=== PATIENT | female | born 1955 | race Caucasian/White ===

== ENCOUNTER 2019-11-21 08:57 | Day surgery (SDC) | payer MEDICARE ==
[2019-11-21] MEDS ORDERED: Dextrose 5%-Lactated Ringers 1,000 ML IV SCH (09:30)
[2019-11-21] MEDS ORDERED: Glycopyrrolate 0.2 MG/ML 2 ML SDV IVPUSH ONE (10:15)
[2019-11-21] MEDS ORDERED: Propofol 200 MG/20 ML SDV ONE (11:06)
[2019-11-21] MEDS ORDERED: Midazolam 1 MG/ML 2 ML SDV ONE (11:06)
[2019-11-21] MEDS ORDERED: fentaNYL 100 MCG/2 ML SDV ONE (11:06)
--- NOTE | 2019-11-25 10:31 | OR ---
DATE OF PROCEDURE: 11/21/2019 SURGEON: Tani Conroy MD PREOPERATIVE DIAGNOSES: 1. Gastroesophageal reflux disease. 2. History of recent treatment for Helicobacter pylori infection. POSTOPERATIVE DIAGNOSES: 1. History of recent treatment for Helicobacter pylori infection. 2. Small hiatal hernia with mild inflammation of esophagogastric junction. 3. 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 OPERATIVE PROCEDURE: Esophagogastroduodenoscopy with: 1. Biopsies of antrum for CLOtest. 2. Biopsies of esophagogastric junction. 3. Biopsies of areas of islands of columnar mucosa isolated above the esophagogastric junction. ANESTHESIA: IV sedation. INDICATIONS FOR PROCEDURE: This is a 64-year-old female presenting with underlying reflux symptoms. As part of the workup previously was tested positive for H. pylori. Prior to that, the patient had been on Pepcid which was not controlling her reflux symptoms. As part of the treatment for the H. pylori, the patient was started on 40 mg of omeprazole b.i.d. in addition to the antibiotics. She has now been off the H. pylori treatment regimen for some time and has been taking omeprazole 40 mg a day for the last 8 days with a good control of her symptoms with that regimen. Plan is to proceed with an upper GI endoscopy for evaluation of the gastroesophageal reflux disease. We will also do biopsies of antrum for CLOtest to see if the H. pylori has been eradicated. She may still need a secondary test of some sort few weeks down the road to confirm that it is completely eradicated as well. Potential risks including bleeding and perforation were discussed, and the patient wishes to proceed. DETAILS OF PROCEDURE: The patient was taken to the operating room and placed in a left lateral decubitus position. IV sedation was administered after which the upper GI endoscope was passed orally through the length of the esophagus, into the stomach with retroflexion view of the fundus, thereafter through the pyloric channel to the junction of the third and fourth portions of the duodenum. Findings included normal hypopharynx, larynx, upper esophageal sphincter, esophageal body. Just above the EG junction roughly 5 cm above the mucosal junction, there were 3 small islands of columnar mucosa, these measured perhaps a mm in size. 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 There was no plaquing or stricturing or other suggestion of neoplastic change within the stomach. There was no significant redness within the gastric mucosa, either within the gastric body or in the antrum, and the pyloric channel and proximal duodenum were unremarkable. At this point, biopsies were obtained from the antrum and sent for CLOtest for H. pylori. Multiple biopsies were obtained from the esophagogastric junction and finally the areas of islands of mucosa were biopsied and sent as a separate specimen. Minimal bleeding from the biopsy sites was seen and the procedure then concluded. At this point, the plan will be to have the patient continue on the omeprazole 40 mg a day and should be following up with Sol Thompson MD roughly in 2 weeks. If the patient's CLOtest is negative, it may still be worthwhile retesting the patient in perhaps 6 weeks to be sure that the H. pylori has been eradicated. Otherwise, follow up with Surgery can be obtained should medical management become at some point unsatisfactory in terms of symptom control or the patient desires to get off long-term medical management with regard to reflux disease. Tani Conroy MD /[id number]
== END 2019-11-21 13:00 | disposition home or self-care (01) ==
LOC: JP.SDS 08:57
PROVIDERS: ATTEND Surgery
DX: K29.50 Unspecified chronic gastritis without bleeding (principal); K44.9 Diaphragmatic hernia without obstruction or gangrene; K31.89 Other diseases of stomach and duodenum; K21.0 Gastro-esophageal reflux disease with esophagitis; Z86.19 Personal history of other infectious and parasitic diseases
CPT/HCPCS: 43239; 87081; J2250; J2704; J3010; J3490; J7121; 88305

== ENCOUNTER 2019-12-19 12:10 | Inpatient (IN) | payer MEDICARE, OTHER ==
--- NOTE | 2019-12-19 13:23 | EDM.PDOC ---
ED HPI GENERAL MEDICAL PROBLEM - General Chief Complaint: Abdominal Pain Stated Complaint: PATIENT STATES GALBLADDER/PASSED OUT Time Seen by Provider: 12/19/19 12:50 Source of Information: Reports: Patient, Family History Limitations: Reports: No Limitations - History of Present Illness INITIAL COMMENTS - FREE TEXT/NARRATIVE: 64-year-old female has been struggling with abdominal pain for the past week. She has a long history of reflux and initially thought it was reflux symptoms but she developed right upper quadrant pain radiating around her back so she went to the clinic to be seen. Labs indicated inflammation with an elevated CRP and an ultrasound of her gallbladder was set up the next day. The result was read today and showed some type of polyp formation in the gallbladder and she had a surgical consultation set up. This morning however she had another intense episode of pain and also developed 2 episodes of bloody diarrhea. No fevers or chills, no vomiting. No abdominal distention. Onset: Gradual Duration: Day(s): (Symptoms for 7 days) Location: Reports: Abdomen (Especially right upper quadrant) Associated Symptoms: Reports: Chest Pain (Some pain in the right lower chest along with the right upper quadrant abdominal pain), Other (Hematochezia). Den ies: Cough - Related Data Allergies Allergy/AdvReac Type Severity Reaction Status Date / Time No Known Allergies Allergy Verified 11/18/19 13:42 Home Meds: Home Meds Omeprazole 40 mg PO ACBREAKFAST 11/18/19 [History] Zolpidem [Ambien] 5 mg PO BEDTIME PRN 11/18/19 [History] Past Medical History HEENT History: Reports: Impaired Vision Cardiovascular History: Reports: Other (See Below) Other Cardiovascular History: history of mitral valve prolapse; diagnosed years ago; no longer takes abx prior to procedures Gastrointestinal History: Reports: GERD, Helicobacter Pylori Genitourinary History: Reports: None [employer] History: Reports: Musculoskeletal History: Reports: Arthritis, Back Pain, Chronic Oncologic (Cancer) History: Reports: Basal Cell Carcinoma, Breast Dermatologic History: Reports: None - Infectious Disease History Infectious Disease History: Reports: Chicken Pox, Helicobacter Pylori, Influenza, Measles - Past Surgical History HEENT Surgical History: Reports: Oral Surgery, Tonsillectomy Cardiovascular Surgical History: Reports: None GI Surgical History: Reports: Colonoscopy Other GI Surgeries/Procedures: Gallbladder polup no stones last week. Female Surgical History: Reports: Breast Biopsy, Mastectomy Musculoskeletal Surgical History: Reports: None Oncologic Surgical History: Reports: Mastectomy Dermatological Surgical History: Reports: Skin Biopsy Social & Family History - Family History Family Medical History: Noncontributory - Tobacco Use Tobacco Use Status *Q: Never Tobacco User - Caffeine Use Caffeine Use: Reports: Tea - Recreational Drug Use Recreational Drug Use: No ED ROS GENERAL - Review of Systems Review Of Systems: See Below Constitutional: Reports: Malaise, Decreased Appetite, Weight Loss (Earlier this summer when she was struggling with Helicobacter pylori). Denies: Fever, Chills HEENT: Reports: No Symptoms Respiratory: Denies: Shortness of Breath, Cough Cardiovascular: Denies: Palpitations GI/Abdominal: Reports: Abdominal Pain, Diarrhea, Hematochezia, Nausea : Reports: No Symptoms Skin: Reports: Pallor, Diaphoresis Neurological: Reports: Other (Near syncope this morning) Psychiatric: Reports: No Symptoms ED EXAM, GENERAL - Physical Exam Exam: See Below Exam Limited By: No Limitations General Appearance: Alert, No Apparent Distress Eye Exam: Bilateral Eye: Normal Inspection Head: Atraumatic Neck: Supple, Non-Tender Respiratory/Chest: Lungs Clear Cardiovascular: Regular Rate, Rhythm. No: Tachycardia GI/Abdominal: Soft, Tender (She does react with tenderness to palpation of her quadrant, no significant guarding) Extremities: Normal Inspection Neurological: Alert, Oriented Psychiatric: Normal Affect, Normal Mood Skin Exam: Warm, Dry, Other (Somewhat pallor appearance, not currently diaphoretic) Course - Vital Signs Last Recorded V/S: Last Vital Signs Temp 97.4 F 12/20/19 07:53 Pulse 75 12/20/19 07:53 Resp 16 12/20/19 07:53 BP 107/57 L 12/20/19 07:53 Pulse Ox 96 12/20/19 07:53 - Orders/Labs/Meds Orders: Active Orders 24 hr Category Date Time Status Patient Status [ADT] Routine ADT 12/19/19 14:45 Active Oxygen Therapy [RC] PRN Care 12/19/19 14:45 Active VTE/DVT Education [RC] Per Unit Routine Care 12/19/19 14:45 Active Vital Signs [RC] Q4H Care 12/19/19 14:45 Active Resuscitation Status Routine Resus Stat 12/19/19 14:44 Ordered Medication Orders Acetaminophen (Tylenol) 650 mg PO Q4H PRN PRN Reason: Pain (Mild 1-3)/fever Hydromorphone HCl (Dilaudid) 0.5 mg IVPUSH Q4H PRN PRN Reason: Pain Ciprofloxacin/Dextrose 400 mg/ (Premix) 200 mls @ 200 mls/hr IV Q12H [facility] Stop: 01/02/20 03:59 Last Admin: 12/20/19 02:26 Dose: 200 mls/hr Documented by: YVES Metronidazole 500 mg/ Premix 100 mls @ 100 mls/hr IV Q8H [facility] Stop: 01/02/20 09:59 Last Admin: 12/20/19 01:15 Dose: 100 mls/hr Documented by: Infusion: 12/19/19 18:33 Dose: 100 mls/hr Documented by: Admin: 12/19/19 17:33 Dose: 100 mls/hr Documented by: ARIELLE Dextrose/Lactated Ringer's (Dextrose 5%-Lactated Ringers) 1,000 mls @ 125 mls/hr IV ASDIRECTED [facility] Ondansetron HCl (Zofran Odt) 4 mg PO Q6H PRN PRN Reason: Nausea able to take PO Pantoprazole Sodium (Protonix Iv) 40 mg IV Q12H [facility] Last Admin: 12/20/19 03:54 Dose: 40 mg Documented by: YVES Zolpidem Tartrate (Ambien) 5 mg PO BEDTIME PRN PRN Reason: Insomnia Last Admin: 12/20/19 01:19 Dose: 5 mg Documented by: PABLO Labs: Laboratory Tests 12/19/19 12/19/19 12/19/19 Range/Units 13:07 13:07 13:07 WBC 16.6 H (4.5-11.0) K/uL RBC 4.24 (3.30-5.50) M/uL Hgb 12.2 (12.0-15.0) g/dL Hct 37.1 (36.0-48.0) % MCV 88 (80-98) fL MCH 29 (27-31) pg MCHC 33 (32-36) % Plt Count 256 (150-400) K/uL Add Manual Diff Yes Neutrophils % (Manual) 87 H (36-66) % Band Neutrophils % 1 L (5-11) % Lymphocytes % (Manual) 6 L (24-44) % Monocytes % (Manual) 5 (2-6) % Sodium 141 (140-148) mmol/L Potassium 3.3 L (3.6-5.2) mmol/L Chloride 103 (100-108) mmol/L Carbon Dioxide 25 (21-32) mmol/L Anion Gap 16.3 H (5.0-14.0) mmol/L BUN 12 (7-18) mg/dL Creatinine 0.9 (0.6-1.0) mg/dL Est Cr Clr Drug Dosing 62.47 mL/min Estimated GFR (MDRD) > 60 (>60) Glucose 114 H (74-106) mg/dL Lactic Acid 1.4 (0.4-2.0) mmol/L Calcium 8.3 L (8.5-10.1) mg/dL Total Bilirubin 0.4 (0.2-1.0) mg/dL AST 13 L (15-37) U/L ALT 24 (12-78) U/L Alkaline Phosphatase 69 (46-116) U/L Total Protein 6.1 L (6.4-8.2) g/dL Albumin 3.0 L (3.4-5.0) g/dL Globulin 3.1 (2.3-3.5) g/dL Albumin/Globulin Ratio 1.0 L (1.2-2.2) Lipase 631 H (73-393) U/L Meds: Medications Generic Name Dose Route Start Last Admin Trade Name Freq PRN Reason Stop Dose Admin Acetaminophen 650 mg 12/19/19 14:47 Tylenol PO Q4H PRN Pain (Mild 1-3)/fever Hydromorphone HCl 0.5 mg 12/19/19 19:43 Dilaudid IVPUSH Q4H PRN Pain Ciprofloxacin/Dextrose 400 mg/ 200 mls @ 200 mls/hr 12/20/19 03:00 12/20/19 02:26 Premix IV 01/02/20 03:59 200 mls/hr Q12H [facility] Administration Metronidazole 500 mg/ Premix 100 mls @ 100 mls/hr 12/19/19 17:00 12/20/19 01:15 IV 01/02/20 09:59 100 mls/hr Q8H [facility] Administration Dextrose/Lactated Ringer's 1,000 mls @ 125 mls/hr 12/20/19 08:00 Dextrose 5%-Lactated Ringers IV ASDIRECTED [facility] Ondansetron HCl 4 mg 12/19/19 14:47 Zofran Odt PO Q6H PRN Nausea able to take PO Pantoprazole Sodium 40 mg 12/20/19 03:00 12/20/19 03:54 Protonix Iv IV 40 mg Q12H [facility] Administration Zolpidem Tartrate 5 mg 12/19/19 19:42 12/20/19 01:19 Ambien PO 5 mg BEDTIME PRN Administration Insomnia Discontinued Medications Generic Name Dose Route Start Last Admin Trade Name Freq PRN Reason Stop Dose Admin Sodium Chloride 80 mls @ 3.5 mls/sec 12/19/19 13:45 12/19/19 13:59 Normal Saline IV 12/19/19 13:46 2.5 mls/sec ASDIRECTED [facility] Administration Sodium Chloride 1,000 mls @ 125 mls/hr 12/19/19 13:45 12/20/19 02:28 Normal Saline IV 1,000 mls/hr ASDIRECTED [facility] Administration Ciprofloxacin/Dextrose 400 mg/ 200 mls @ 200 mls/hr 12/19/19 15:00 12/19/19 15:30 Premix IV 01/02/20 15:01 200 mls/hr Q12H [facility] Administration Iopamidol 96 ml 12/19/19 13:45 12/19/19 13:59 Isovue-300 (61%) IV 12/19/19 13:46 96 ml . DIRECTED [facility] Administration Pantoprazole Sodium 40 mg 12/19/19 14:32 12/19/19 15:01 Protonix Iv IVPUSH 12/19/19 14:33 40 mg ONETIME ONE Administration Sodium Chloride 10 ml 12/19/19 13:33 12/19/19 13:59 Saline Flush FLUSH 12/19/19 13:34 10 ml ONETIME ONE Administration - Re-Assessments/Exams Free Text/Narrative Re-Assessment/Exam: 12/19/19 13:25 Labs and ultrasound from earlier this week were obtained through records. Her CRP was 25, hemoglobin and white count normal. Ultrasound showed a gallbladder polyp but no other abnormality. CBC, CMP, lipase and lactic acid were obtained and this was followed with a CT of the abdomen and pelvis with IV contrast due to the bloody diarrhea and possibility of colitis or ischemic bowel. 12/19/19 14:21 White count is now elevated 16,600, lactic acid normal. Lipase also now elevated near 700. CT of the abdomen and pelvis with IV contrast shows inflammatory changes in the right upper quadrant, awaiting the radiology interpretation at this time. 12/19/19 14:48 Radiology interpretation appears to be an inflamed duodenal diverticula. Dr. Conroy was consulted and he recommended admission through the hospitalist service with proton pump inhibitor treatment and reassessment later. She was given 40 mg of IV Protonix and the hospitalist service was consulted. Departure - Departure Time of Disposition: 16:05 Disposition: Admitted As Inpatient 65 Clinical Impression: Duodenitis with hemorrhage, Diverticulitis of duodenum Abdominal pain Qualifiers: Abdominal location: upper abdomen, unspecified Qualified Code(s): R10.10 - Upper abdominal pain, unspecified - Discharge Information Sepsis Event Note (ED) - Evaluation Sepsis Screening Result: No Definite Risk
[2019-12-19] MEDS ORDERED: Sodium Chloride 0.9% 10 ML Syringe FLUSH ONE (13:33)
[2019-12-19] MEDS: Sodium Chloride 0.9% 1,000 ML IV SCH (13:40)
[2019-12-19] MEDS ORDERED: Sodium Chloride 0.9% 80 ML IV SCH (13:45)
[2019-12-19] MEDS ORDERED: Iopamidol 612 MG/ML 100 ML Bottle IV SCH (13:45)
[2019-12-19] MEDS ORDERED: Pantoprazole 40 MG Vial IVPUSH ONE (14:32)
--- NOTE | 2019-12-19 14:32 | CT ---
Abdomen Pelvis w Cont CLINICAL HISTORY: Right upper quadrant pain and bloody diarrhea COMPARISON: None. TECHNIQUE: Transverse scans were obtained from the base of the lungs to the pubic symphysis following IV infusion of contrast. Auto dosage reduction and iterative reconstructiontechniques employed. FINDINGS: The lung bases are clear. There is a small pericardial effusion. The liver contains multiple small low-attenuation foci which are felt to BE cysts largest measures 2 cm. The gallbladder has a normal contour, bile duct measures 10 mm. This tapers in the pancreatic head. There is some gastric distention. There is mild fluid distention of the descending duodenum. There is an adjacent mixed air and fluid collection measuring 3.1 x 3.5 cm. This is likely a descending duodenal diverticula. This causes some mass effect on the pancreatic head. There is no inflammatory change in the pancreas. The adrenal glands appear normal bilaterally . The kidneys show no mass, stones or hydronephrosis.. The ureters have normal course and contour. The aorta has a normal contour. There is no suspicious retroperitoneal adenopathy. There are scattered fluid-filled loops of small bowel without significant distention. The colon is fluid-filled which is consistent with the patient's history of diarrhea. The no inflammatory changes are seen in the pericolic regions. The the uterus is mildly enlarged to the. There may be a uterine fibroid in the lower uterine segment. There are some varices in the left adnexal region. IMPRESSION: Contiguous to the duodenum and pancreatic head there is a 3.1 x 3.5 cm mixed density structure which contains air. This is most likely duodenal diverticula. This mass effect may be causing some mild duodenal obstruction. The inflamed diverticula is not excluded. There may be some mild wall thickening. The patient has a history of elevated lipase. Some pancreatitis of the pancreatic head is not excluded Multiple renal cysts Small pericardial effusion Generalized uterine enlargement likely due to fibroids in the lower uterine segment Left ovarian varices Fluid-filled small bowel and colon consistent with patient's history of diarrhea.
[2019-12-19] MEDS ORDERED: Ondansetron 4 MG Tab.DIS PO PRN (14:47)
[2019-12-19] MEDS ORDERED: Pantoprazole 40 MG Vial IV SCH (15:00)
[2019-12-19] MEDS ORDERED: metroNIDAZOLE/Normal Saline 500 MG in Premix Bag 1 BAG IV SCH (15:00)
[2019-12-19] MEDS ORDERED: Ciprofloxacin in D5W 400 MG in Premix Bag 1 BAG IV SCH ×2 (15:00)
--- NOTE | 2019-12-19 16:03 | PCM.HP.2 ---
H&P History of Present Illness - General Date of Service: 12/19/19 Admit Problem/Dx: Admitting Dx: 1. Duodenitis 2. Pancreatitis Source of Information: Patient, Family, Other (ER attending) History Limitations: Reports: No Limitations - History of Present Illness Initial Comments - Free Text/Narative: Ms. Sowmya Salcedo is a 64 yo F who was admitted to [facility] on 19 December 2019 for evaluation of epigastric abdominal pain, chills, reduced appetite x 6 days. The patient noted that her symptoms began about 6 days ago after having eaten a fish sandwich from [employer]. The patient noted that from that time forward she began to have a severe epigastric pain that, unlike her prior episodes of GERD and H pylori, did not radiate up into the chest. Rather they remained in the upper abdomen with some radiation into the RUQ and R flank. The patient, since that time, had noted chills and sweats intermittently. Likewise she has noted markedly reduced appetite. She notes that the pain sets in within 20 minutes of consuming food and is transient lasting a couple of hours before returning to a dull aching or moderate pain. She further notes that on the day of admission she had two episodes of blood in her stool. She was treated in October for Helicobacter pylori infection after a 2-4 wk period of severe epigastric pain at that time. On the whole she has felt run down over the past few days. She consumes an occasional [employer] but otherwise does not regularly consume alcohol. She had colonoscopy x 2 at 49 and 59 years of age, both of which were negative and she is continued on the 10 year screening pathway. Duration of Symptoms: Reports: Day(s): Location: Reports: Abdomen Severity: Moderate Improves with: Reports: None Worsens with: Reports: None - Related Data Allergies/Adverse Reactions: Allergies Allergy/AdvReac Type Severity Reaction Status Date / Time No Known Allergies Allergy Verified 11/18/19 13:42 Home Medications: Home Meds Omeprazole 40 mg PO ACBREAKFAST 11/18/19 [History] Zolpidem [Ambien] 5 mg PO BEDTIME PRN 11/18/19 [History] Past Medical History HEENT History: Reports: Impaired Vision Cardiovascular History: Reports: Other (See Below) Other Cardiovascular History: history of mitral valve prolapse; diagnosed years ago; no longer takes abx prior to procedures Gastrointestinal History: Reports: GERD, Helicobacter Pylori Genitourinary History: Reports: None [employer] History: Reports: Musculoskeletal History: Reports: Arthritis, Back Pain, Chronic Oncologic (Cancer) History: Reports: Basal Cell Carcinoma, Breast Dermatologic History: Reports: None - Infectious Disease History Infectious Disease History: Reports: Chicken Pox, Helicobacter Pylori, Influenza, Measles - Past Surgical History HEENT Surgical History: Reports: Oral Surgery, Tonsillectomy Cardiovascular Surgical History: Reports: None GI Surgical History: Reports: Colonoscopy Other GI Surgeries/Procedures: Gallbladder polup no stones last week. Female Surgical History: Reports: Breast Biopsy, Mastectomy Musculoskeletal Surgical History: Reports: None Oncologic Surgical History: Reports: Mastectomy Dermatological Surgical History: Reports: Skin Biopsy Social & Family History - Family History Family Medical History: Noncontributory - Tobacco Use Tobacco Use Status *Q: Never Tobacco User - Caffeine Use Caffeine Use: Reports: Tea - Alcohol Use Alcohol Use History: Yes - Recreational Drug Use Recreational Drug Use: No H&P Review of Systems - Review of Systems: Review Of Systems: Comprehensive ROS is negative, except as noted in HPI. Exam - Exam Exam: See Below - Vital Signs Vital Signs: Last Vital Signs Temp 96.8 F L 12/19/19 12:47 Pulse 69 12/19/19 12:47 Resp 12 12/19/19 12:47 BP 117/69 12/19/19 12:47 Pulse Ox 99 12/19/19 12:47 Weight: 140 lb - Exam Quality Assessment: DVT Prophylaxis. No: Supplemental Oxygen General: Alert, Oriented, Cooperative, Moderate Distress HEENT: PERRLA, Conjunctiva Clear, EOMI, Mucosa Moist & Arma, Posterior Pharynx Clear, Pupils Equal, Pupils Reactive Lungs: Clear to Auscultation, Normal Respiratory Effort Cardiovascular: Regular Rate, Regular Rhythm, Normal S1, Normal S2 GI/Abdominal Exam: Normal Bowel Sounds, Soft, No Organomegaly, No Distention, No Abnormal Bruit, No Mass, Tender (There is pain without rebound, guarding, or rigidity noted on the RUQ/epigastrium. ). No: Guarding, Rigid, Rebound Back Exam: Normal Inspection, Full Range of Motion Extremities: Normal Inspection, Normal Range of Motion, Non-Tender, No Pedal Edema, Normal Capillary Refill Peripheral Pulses: 2+: Posterior Tibial (L), Posterior Tibial (R), Dorsalis Pedis (L), Dorsalis Pedis (R) Skin: Warm, Dry, Intact Neurological: Cranial Nerves Intact, Reflexes Equal Bilateral Neuro Extensive - Mental Status: Alert, Oriented x3, Normal Mood/Affect, Normal Cognition, Memory Intact Neuro Extensive - Motor, Sensory, Reflexes: CN II-XII Intact, Normal Gait, Normal Reflexes Psychiatric: Alert, Normal Affect, Normal Mood - Patient Data Lab Results Last 24 hrs: Laboratory Results - last 24 hr 12/19/19 12/19/19 12/19/19 Range/Units 13:07 13:07 13:07 WBC 16.6 H (4.5-11.0) K/uL RBC 4.24 (3.30-5.50) M/uL Hgb 12.2 (12.0-15.0) g/dL Hct 37.1 (36.0-48.0) % MCV 88 (80-98) fL MCH 29 (27-31) pg MCHC 33 (32-36) % Plt Count 256 (150-400) K/uL Add Manual Diff Yes Neutrophils % (Manual) 87 H (36-66) % Band Neutrophils % 1 L (5-11) % Lymphocytes % (Manual) 6 L (24-44) % Monocytes % (Manual) 5 (2-6) % Sodium 141 (140-148) mmol/L Potassium 3.3 L (3.6-5.2) mmol/L Chloride 103 (100-108) mmol/L Carbon Dioxide 25 (21-32) mmol/L Anion Gap 16.3 H (5.0-14.0) mmol/L BUN 12 (7-18) mg/dL Creatinine 0.9 (0.6-1.0) mg/dL Est Cr Clr Drug Dosing 62.47 mL/min Estimated GFR (MDRD) > 60 (>60) Glucose 114 H (74-106) mg/dL Lactic Acid 1.4 (0.4-2.0) mmol/L Calcium 8.3 L (8.5-10.1) mg/dL Total Bilirubin 0.4 (0.2-1.0) mg/dL AST 13 L (15-37) U/L ALT 24 (12-78) U/L Alkaline Phosphatase 69 (46-116) U/L Total Protein 6.1 L (6.4-8.2) g/dL Albumin 3.0 L (3.4-5.0) g/dL Globulin 3.1 (2.3-3.5) g/dL Albumin/Globulin Ratio 1.0 L (1.2-2.2) Lipase 631 H (73-393) U/L Result Diagrams: 12/19/19 13:07 12/19/19 13:07 Sepsis Event Note - Evaluation Sepsis Screening Result: No Definite Risk - Focused Exam Vital Signs: Vital Signs Temp Pulse Resp BP Pulse Ox 12/19/19 12:47 96.8 F L 69 12 117/69 99 12/19/19 12:46 96.8 F L 69 12 117/69 99 Problem List Initiated/Reviewed/Updated: Yes Orders Last 24hrs: Active Orders 24 hr Category Date Time Status Patient Status [ADT] Routine ADT 12/19/19 14:45 Active Ambulate [RC] QID Care 12/19/19 14:47 Active Antiembolic Devices [RC] .Routine Care 12/19/19 14:47 Active Oxygen Therapy [RC] PRN Care 12/19/19 14:45 Active Oxygen Therapy [RC] PRN Care 12/19/19 14:47 Active Up to Chair [RC] QID Care 12/19/19 14:47 Active VTE/DVT Education [RC] Per Unit Routine Care 12/19/19 14:45 Active VTE/DVT Education [RC] Per Unit Routine Care 12/19/19 14:47 Active Vital Signs [RC] Q4H Care 12/19/19 14:45 Active Nothing per Oral Now Diet [DIET] Diet 12/19/19 Dinner Active CBC WITH AUTO DIFF [HEME] DAILY Lab 12/20/19 15:00 Ordered CBC WITH AUTO DIFF [HEME] DAILY Lab 12/21/19 15:00 Ordered CBC WITH AUTO DIFF [HEME] DAILY Lab 12/22/19 15:00 Ordered CBC WITH AUTO DIFF [HEME] DAILY Lab 12/23/19 15:00 Ordered CBC WITH AUTO DIFF [HEME] DAILY Lab 12/24/19 15:00 Ordered CBC WITH AUTO DIFF [HEME] DAILY Lab 12/25/19 15:00 Ordered COMPREHENSIVE METABOLIC PN,CMP [CHEM] DAILY Lab 12/20/19 15:00 Ordered COMPREHENSIVE METABOLIC PN,CMP [CHEM] DAILY Lab 12/21/19 15:00 Ordered COMPREHENSIVE METABOLIC PN,CMP [CHEM] DAILY Lab 12/22/19 15:00 Ordered COMPREHENSIVE METABOLIC PN,CMP [CHEM] DAILY Lab 12/23/19 15:00 Ordered COMPREHENSIVE METABOLIC PN,CMP [CHEM] DAILY Lab 12/24/19 15:00 Ordered COMPREHENSIVE METABOLIC PN,CMP [CHEM] DAILY Lab 12/25/19 15:00 Ordered LIPASE [CHEM] DAILY Lab 12/19/19 15:54 Ordered LIPASE [CHEM] DAILY Lab 12/20/19 15:54 Ordered LIPASE [CHEM] DAILY Lab 12/21/19 15:54 Ordered LIPASE [CHEM] DAILY Lab 12/22/19 15:54 Ordered LIPASE [CHEM] DAILY Lab 12/23/19 15:54 Ordered LIPASE [CHEM] DAILY Lab 12/24/19 15:54 Ordered Acetaminophen [TylenoL] Med 12/19/19 14:47 Active 650 mg PO Q4H PRN Ciprofloxacin in D5W [Cipro in D5W 400 MG/200 ML] 400 Med 12/19/19 15:00 Active mg Premix Bag 1 bag IV Q12H Ondansetron [Zofran ODT] Med 12/19/19 14:47 Active 4 mg PO Q6H PRN Pantoprazole [ProTONIX IV] Med 12/20/19 03:00 Active 40 mg IV Q12H Sodium Chloride 0.9% [Normal Saline] 1,000 ml Med 12/19/19 13:45 Active IV ASDIRECTED metroNIDAZOLE/Normal Saline [Flagyl 500 MG in NS 100 ML Med 12/19/19 15:00 Active ] 500 mg Premix Bag 1 bag IV Q8H Sequential Compression Device [OM.PC] Per Unit Routine Oth 12/19/19 14:49 Ordered Resuscitation Status Routine Resus Stat 12/19/19 14:44 Ordered Medication Orders Acetaminophen (Tylenol) 650 mg PO Q4H PRN PRN Reason: Pain (Mild 1-3)/fever Sodium Chloride (Normal Saline) 1,000 mls @ 1,000 mls/hr IV ASDIRECTED [facility] Last Admin: 12/19/19 13:40 Dose: 1,000 mls/hr Documented by: [id number] Ciprofloxacin/Dextrose 400 mg/ (Premix) 200 mls @ 200 mls/hr IV Q12H [facility] Stop: 01/02/20 15:01 Last Admin: 12/19/19 15:30 Dose: 200 mls/hr Documented by: [id number] Metronidazole 500 mg/ Premix 100 mls @ 100 mls/hr IV Q8H [facility] Stop: 01/02/20 15:01 Ondansetron HCl (Zofran Odt) 4 mg PO Q6H PRN PRN Reason: Nausea able to take PO Pantoprazole Sodium (Protonix Iv) 40 mg IV Q12H [facility] Assessment/Plan Comment:: Assessment and Plan: 1. HEENT No active issues. No URI or COVID 19/Influenza sxs 2. Cardiopulmonary No significant HTN or other issues noted. No pulmonary hallmarks of CHF, COVID 19 noted. She did note feeling somewhat lightheaded over the past few days which I think is more reflective of her poor PO nutritional status as well as poor hydration status 3. Gastrointestinal Patient has marked elevation of the WBC, Lipase, and imaging findings suggestive of pancreatitis and duodenitis. The patient also apparently has a duodenal diverticulitis which is likely the etiology of the heme positive stools. The patient had a stable hemogram at time of admission but for the elevated WBC. However, the patient has not been well hydrated by her admission over the past few days and I wonder if she is slightly heme-concentrated. - Admit to Medicine - General Surgery is aware and has requested admission - Requesting atbx management, observation x 2 days in anticipation of possible UGI endoscopy (confirmed can be done on 12/20 - Daily CBC, CMP, Lipase - Every 8 hour hemoglobin for now. - NPO - IV fluids - Start Ciprofloxacin 400 mg IV q 12 hours (Day 03/19) - Start Flagyl 500 mg IV q 8 hours (Day 03/19) 4. Renal Stable, no issues 5. ID May well have infectious pancreatitis/duodenitis - As above for atbx 6. F/E/N NPO, IVF for now 7. Neuromusculoskeletal No active issues other than chronic stable LBP 8. Mental Health/Psychological No issues - Mortality Measure Prognosis:: Good
[2019-12-19] MEDS: metroNIDAZOLE/Normal Saline 500 MG in Premix Bag 1 BAG IV SCH (17:33)
[2019-12-19] MEDS ORDERED: HYDROmorphone 0.5 MG/0.5 ML Syringe IVPUSH PRN (19:43)
[2019-12-20] MEDS: metroNIDAZOLE/Normal Saline 500 MG in Premix Bag 1 BAG IV SCH ×3 (01:15→17:22)
[2019-12-20] MEDS: Zolpidem 5 MG Tab PO PRN ×2 (01:19→20:18)
[2019-12-20] MEDS: Ciprofloxacin in D5W 400 MG in Premix Bag 1 BAG IV SCH ×4 (02:26→15:18)
[2019-12-20] MEDS: Sodium Chloride 0.9% 1,000 ML IV SCH (02:28)
[2019-12-20] MEDS: Pantoprazole 40 MG Vial IV SCH ×2 (03:54→15:19)
[2019-12-20] MEDS ORDERED: Dextrose 5%-Lactated Ringers 1,000 ML IV SCH (08:00)
--- NOTE | 2019-12-20 10:37 | PCM.PN ---
- General Info Date of Service: 12/20/19 Admission Dx/Problem (Free Text): 1. Pancreatitis 2. Duodenitis Subjective Update: Patient notes pain is down to a mild to moderate ache. No further melena, no hematemesis Awaiting surgical eval Functional Status: Reports: Pain Controlled - Review of Systems General: Reports: No Symptoms HEENT: Reports: No Symptoms Pulmonary: Reports: No Symptoms Cardiovascular: Reports: No Symptoms Gastrointestinal: Reports: Abdominal Pain, Decreased Appetite. Denies: Diarrhea, Hematochezia, Melena, Nausea, Vomiting - Patient Data Vitals - Most Recent: Last Vital Signs Temp 97.4 F 12/20/19 07:53 Pulse 75 12/20/19 07:53 Resp 16 12/20/19 07:53 BP 107/57 L 12/20/19 07:53 Pulse Ox 96 12/20/19 07:53 Weight - Most Recent: 140 lb I&O - Last 24 Hours: Intake & Output 12/19/19 12/20/19 12/20/19 22:59 06:59 14:59 Intake Total 1094 1142 100 Output Total 151 300 500 Balance 943 842 -400 Lab Results Last 24 Hours: Laboratory Results - last 24 hr 12/19/19 12/19/19 12/19/19 Range/Units 13:07 13:07 13:07 WBC 16.6 H (4.5-11.0) K/uL RBC 4.24 (3.30-5.50) M/uL Hgb 12.2 (12.0-15.0) g/dL Hct 37.1 (36.0-48.0) % MCV 88 (80-98) fL MCH 29 (27-31) pg MCHC 33 (32-36) % Plt Count 256 (150-400) K/uL Neut % (Auto) (36-66) % Lymph % (Auto) (24-44) % Ada % (Auto) (2-6) % Eos % (Auto) (2-4) % Baso % (Auto) (0-1) % Add Manual Diff Yes Neutrophils % (Manual) 87 H (36-66) % Band Neutrophils % 1 L (5-11) % Lymphocytes % (Manual) 6 L (24-44) % Monocytes % (Manual) 5 (2-6) % Sodium 141 (140-148) mmol/L Potassium 3.3 L (3.6-5.2) mmol/L Chloride 103 (100-108) mmol/L Carbon Dioxide 25 (21-32) mmol/L Anion Gap 16.3 H (5.0-14.0) mmol/L BUN 12 (7-18) mg/dL Creatinine 0.9 (0.6-1.0) mg/dL Est Cr Clr Drug Dosing 62.47 mL/min Estimated GFR (MDRD) > 60 (>60) Glucose 114 H (74-106) mg/dL Lactic Acid 1.4 (0.4-2.0) mmol/L Calcium 8.3 L (8.5-10.1) mg/dL Total Bilirubin 0.4 (0.2-1.0) mg/dL AST 13 L (15-37) U/L ALT 24 (12-78) U/L Alkaline Phosphatase 69 (46-116) U/L Total Protein 6.1 L (6.4-8.2) g/dL Albumin 3.0 L (3.4-5.0) g/dL Globulin 3.1 (2.3-3.5) g/dL Albumin/Globulin Ratio 1.0 L (1.2-2.2) Lipase 631 H (73-393) U/L 12/19/19 12/19/19 12/20/19 Range/Units 15:54 18:03 00:00 WBC (4.5-11.0) K/uL RBC (3.30-5.50) M/uL Hgb 10.3 L 9.5 L (12.0-15.0) g/dL Hct (36.0-48.0) % MCV (80-98) fL MCH (27-31) pg MCHC (32-36) % Plt Count (150-400) K/uL Neut % (Auto) (36-66) % Lymph % (Auto) (24-44) % Ada % (Auto) (2-6) % Eos % (Auto) (2-4) % Baso % (Auto) (0-1) % Add Manual Diff Neutrophils % (Manual) (36-66) % Band Neutrophils % (5-11) % Lymphocytes % (Manual) (24-44) % Monocytes % (Manual) (2-6) % Sodium (140-148) mmol/L Potassium (3.6-5.2) mmol/L Chloride (100-108) mmol/L Carbon Dioxide (21-32) mmol/L Anion Gap (5.0-14.0) mmol/L BUN (7-18) mg/dL Creatinine (0.6-1.0) mg/dL Est Cr Clr Drug Dosing mL/min Estimated GFR (MDRD) (>60) Glucose (74-106) mg/dL Lactic Acid (0.4-2.0) mmol/L Calcium (8.5-10.1) mg/dL Total Bilirubin (0.2-1.0) mg/dL AST (15-37) U/L ALT (12-78) U/L Alkaline Phosphatase (46-116) U/L Total Protein (6.4-8.2) g/dL Albumin (3.4-5.0) g/dL Globulin (2.3-3.5) g/dL Albumin/Globulin Ratio (1.2-2.2) Lipase 424 H (73-393) U/L 12/20/19 12/20/19 Range/Units 06:10 06:10 WBC 4.8 (4.5-11.0) K/uL RBC 3.25 L (3.30-5.50) M/uL Hgb 9.5 L (12.0-15.0) g/dL Hct 28.6 L (36.0-48.0) % MCV 88 (80-98) fL MCH 29 (27-31) pg MCHC 33 (32-36) % Plt Count 167 (150-400) K/uL Neut % (Auto) 63 (36-66) % Lymph % (Auto) 26 (24-44) % Ada % (Auto) 9 H (2-6) % Eos % (Auto) 2 (2-4) % Baso % (Auto) 1 (0-1) % Add Manual Diff Neutrophils % (Manual) (36-66) % Band Neutrophils % (5-11) % Lymphocytes % (Manual) (24-44) % Monocytes % (Manual) (2-6) % Sodium 139 L (140-148) mmol/L Potassium 3.4 L (3.6-5.2) mmol/L Chloride 105 (100-108) mmol/L Carbon Dioxide 26 (21-32) mmol/L Anion Gap 11.4 (5.0-14.0) mmol/L BUN 10 (7-18) mg/dL Creatinine 0.6 (0.6-1.0) mg/dL Est Cr Clr Drug Dosing 93.71 mL/min Estimated GFR (MDRD) > 60 (>60) Glucose 92 (74-106) mg/dL Lactic Acid (0.4-2.0) mmol/L Calcium 7.5 L (8.5-10.1) mg/dL Total Bilirubin 0.3 (0.2-1.0) mg/dL AST 11 L (15-37) U/L ALT 19 (12-78) U/L Alkaline Phosphatase 50 (46-116) U/L Total Protein 4.9 L (6.4-8.2) g/dL Albumin 2.4 L (3.4-5.0) g/dL Globulin 2.5 (2.3-3.5) g/dL Albumin/Globulin Ratio 1.0 L (1.2-2.2) Lipase 269 (73-393) U/L Med Orders - Current: Current Medications Acetaminophen (Tylenol) 650 mg PO Q4H PRN PRN Reason: Pain (Mild 1-3)/fever Hydromorphone HCl (Dilaudid) 0.5 mg IVPUSH Q4H PRN PRN Reason: Pain Ciprofloxacin/Dextrose 400 mg/ (Premix) 200 mls @ 200 mls/hr IV Q12H ON LICENSE OF [facility] Stop: 01/02/20 03:59 Last Admin: 12/20/19 02:26 Dose: 200 mls/hr Documented by: Metronidazole 500 mg/ Premix 100 mls @ 100 mls/hr IV Q8H ON LICENSE OF [facility] Stop: 01/02/20 09:59 Last Admin: 12/20/19 08:06 Dose: 100 mls/hr Documented by: Dextrose/Lactated Ringer's (Dextrose 5%-Lactated Ringers) 1,000 mls @ 125 mls/hr IV ASDIRECTED ON LICENSE OF [facility] Ondansetron HCl (Zofran Odt) 4 mg PO Q6H PRN PRN Reason: Nausea able to take PO Pantoprazole Sodium (Protonix Iv) 40 mg IV Q12H ON LICENSE OF [facility] Last Admin: 12/20/19 03:54 Dose: 40 mg Documented by: Zolpidem Tartrate (Ambien) 5 mg PO BEDTIME PRN PRN Reason: Insomnia Last Admin: 12/20/19 01:19 Dose: 5 mg Documented by: Discontinued Medications Sodium Chloride (Normal Saline) 80 mls @ 3.5 mls/sec IV ASDIRECTED ON LICENSE OF [facility] Stop: 12/19/19 13:46 Last Admin: 12/19/19 13:59 Dose: 2.5 mls/sec Documented by: Sodium Chloride (Normal Saline) 1,000 mls @ 125 mls/hr IV ASDIRECTED ON LICENSE OF [facility] Last Admin: 12/20/19 02:28 Dose: 1,000 mls/hr Documented by: Ciprofloxacin/Dextrose 400 mg/ (Premix) 200 mls @ 200 mls/hr IV Q12H ON LICENSE OF [facility] Stop: 01/02/20 15:01 Last Admin: 12/19/19 15:30 Dose: 200 mls/hr Documented by: Iopamidol (Isovue-300 (61%)) 96 ml IV . DIRECTED ON LICENSE OF [facility] Stop: 12/19/19 13:46 Last Admin: 12/19/19 13:59 Dose: 96 ml Documented by: Pantoprazole Sodium (Protonix Iv) 40 mg IVPUSH ONETIME ONE Stop: 12/19/19 14:33 Last Admin: 12/19/19 15:01 Dose: 40 mg Documented by: Sodium Chloride (Saline Flush) 10 ml FLUSH ONETIME ONE Stop: 12/19/19 13:34 Last Admin: 12/19/19 13:59 Dose: 10 ml Documented by: - Exam Quality Assessment: DVT Prophylaxis. No: Supplemental Oxygen General: Alert, Oriented, Cooperative, No Acute Distress Lungs: Clear to Auscultation, Normal Respiratory Effort Cardiovascular: Regular Rate, Regular Rhythm, No Murmurs GI/Abdominal Exam: Normal Bowel Sounds, Soft, No Organomegaly, No Distention, No Abnormal Bruit, No Mass, Guarding (Slight involuntary guarding), Tender (RUQ/Epigastrium with no significant rebound, perhaps some slight involuntary guarding). No: Rigid, Rebound Sepsis Event Note - Evaluation Sepsis Screening Result: No Definite Risk - Focused Exam Vital Signs: Vital Signs Temp Pulse Resp BP Pulse Ox 12/20/19 07:53 97.4 F 75 16 107/57 L 96 12/20/19 02:42 97.3 F 65 16 103/61 98 12/20/19 01:13 97.8 F 67 16 155/56 H 96 - Problem List Review Problem List Initiated/Reviewed/Updated: Yes - My Orders Last 24 Hours: My Active Orders 12/19/19 14:44 Resuscitation Status Routine 12/19/19 14:45 Patient Status [ADT] Routine Oxygen Therapy [RC] PRN VTE/DVT Education [RC] Per Unit Routine Vital Signs [RC] Q4H 12/19/19 14:47 Ambulate [RC] QID Antiembolic Devices [RC] .Routine Up to Chair [RC] QID Acetaminophen [TylenoL] 650 mg PO Q4H PRN Ondansetron [Zofran ODT] 4 mg PO Q6H PRN 12/19/19 14:49 Sequential Compression Device [OM.PC] Per Unit Routine 12/19/19 Dinner Nothing per Oral Now Diet [DIET] metroNIDAZOLE/Normal Saline [Flagyl 500 MG in NS 100 ML] 500 mg Premix Bag 1 bag IV Q8H 12/19/19 19:42 Zolpidem [Ambien] 5 mg PO BEDTIME PRN 12/19/19 19:43 HYDROmorphone [Dilaudid] 0.5 mg IVPUSH Q4H PRN 12/20/19 03:00 Ciprofloxacin in D5W [Cipro in D5W 400 MG/200 ML] 400 mg Premix Bag 1 bag IV Q12H Pantoprazole [ProTONIX IV] 40 mg IV Q12H 12/21/19 05:00 LIPASE [CHEM] Routine 12/21/19 06:00 CBC WITH AUTO DIFF [HEME] DAILY COMPREHENSIVE METABOLIC PN,CMP [CHEM] DAILY LIPASE [CHEM] DAILY 12/22/19 06:00 CBC WITH AUTO DIFF [HEME] DAILY COMPREHENSIVE METABOLIC PN,CMP [CHEM] DAILY LIPASE [CHEM] DAILY 12/23/19 06:00 CBC WITH AUTO DIFF [HEME] DAILY COMPREHENSIVE METABOLIC PN,CMP [CHEM] DAILY LIPASE [CHEM] DAILY 12/24/19 06:00 CBC WITH AUTO DIFF [HEME] DAILY COMPREHENSIVE METABOLIC PN,CMP [CHEM] DAILY LIPASE [CHEM] DAILY 12/25/19 06:00 CBC WITH AUTO DIFF [HEME] DAILY LIPASE [CHEM] DAILY - Plan Plan:: Assessment and Plan: 1. HEENT No active issues. No URI or COVID 19/Influenza sxs 2. Cardiopulmonary No significant HTN or other issues noted. No pulmonary hallmarks of CHF, COVID 19 noted. She did note feeling somewhat lightheaded over the past few days which I think is more reflective of her poor PO nutritional status as well as poor hydration status 3. Gastrointestinal Patient has marked elevation of the WBC, Lipase, and imaging findings suggestive of pancreatitis and duodenitis. The patient also apparently has a duodenal diverticulitis which is likely the etiology of the heme positive stools. The patient had a stable hemogram at time of admission but for the elevated WBC. However, the patient has not been well hydrated by her admission over the past few days and I wonder if she is slightly heme-concentrated. Update 19 December Wbc down, Lipase normalized. Hgb appears to be stable at this point. - Admit to Medicine - General Surgery is aware and has requested admission - Requesting atbx management, observation x 2 days in anticipation of possible UGI endoscopy (confirmed can be done on 12/20) - Daily CBC, CMP, Lipase - As Hgb has stabilized, ok with daily Hgb check in context of AM blood draw - NPO - IV fluids - Continue Ciprofloxacin 400 mg IV q 12 hours (Day 04/19) - Continue Flagyl 500 mg IV q 8 hours (Day 2) 4. Renal Stable, no issues 5. ID May well have infectious pancreatitis/duodenitis - As above for atbx 6. F/E/N NPO, IVF for now 7. Neuromusculoskeletal No active issues other than chronic stable LBP 8. Mental Health/Psychological No issues Disposition: Home Meng London M.D. 20 December 2019
[2019-12-20] MEDS: Acetaminophen 325 MG Tab PO PRN ×2 (11:51→17:26)
--- NOTE | 2019-12-20 14:07 | HP ---
HISTORY OF PRESENT ILLNESS: Sowmya is seen in consultation for pancreatitis and duodenitis. Sowmya reports that she had positive H pylori the end of October, finished her treatment for that, then had an upper endoscopy with negative biopsies for H pylori done by Tani Conroy MD in November. She states she felt good until Monday, then developed an increase in abdominal pain, and started having some bloody stools. Reports that her abdominal symptoms originally started in June 2019. Her weight was 152 pounds and her weight today is 140. Denies any other associated signs and symptoms. PAST MEDICAL HISTORY: Positive for having right breast cancer in 2011 at [facility], history of H pylori, and mitral valve prolapse. SOCIAL HISTORY: . 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 Has 2 children. Does not smoke. Has no alcohol for 2 months. No caffeine or carbonation. Will have an occasional noncaffeinated iced tea. PAST SURGICAL HISTORY: Tonsillectomy and right mastectomy skin biopsies. CURRENT MEDICATIONS: Ambien 5 mg p.o. at bedtime p.r.n. and omeprazole 40 mg before breakfast. ALLERGIES: NO KNOWN MEDICAL ALLERGIES. REVIEW OF SYSTEMS: Complete review of systems. CONSTITUTIONAL: Denies any fever, chills, night sweats, or fatigue. Reports being tired, decreased appetite, weight loss. HEENT: No headache, dizziness. RESPIRATORY: No shortness of breath or cough. CARDIOVASCULAR: No chest pain, fast irregular heart beat. GASTROINTESTINAL: As above. GENITOURINARY: No UTI signs and symptoms. SKIN: Negative for any changes in moles or rashes. NEUROLOGICAL: Denies any loss of coordination, weakness in extremities, but did report that the morning she went to the emergency room she did almost faint. PSYCHIATRIC: No depression or anxiety, and insomnia is treated with Ambien. Remainder of review of systems negative for any pertinent positives or negatives. OBJECTIVE: GENERAL: Sowmya is a pleasant 64-year-old female. VITAL SIGNS: Height is 5 feet 9 inches. Weight is 140 pounds. TPR is 97.4, 75, 16, blood pressure is 107/57. HEENT: Negative. NECK: Supple. HEART: Regular rate and rhythm. LUNGS: Clear. ABDOMEN: Mild tenderness is noted in the mid and lower abdominal quadrants. No distention. EXTREMITIES: Without peripheral edema. Full range of motion. SKIN: Without rash. NEUROLOGIC: Cranial nerves 2 through 12 intact. PSYCHIATRIC: Mood and affect appropriate. ASSESSMENT: 1. Abdominal pain. 2. Duodenitis with hemorrhage. 3. Diverticulitis of duodenum. 4. Gastroesophageal reflux disease. 5. History of Helicobacter pylori. 6. History of breast cancer. 7. Mitral valve prolapse. PLAN: 1. Schedule and have consent signed for EGD with biopsies 12/21/2019 at 0715, n.p.o. after midnight. Surgeon: Tani Conroy MD. Makayla Joshi preop. 2. D5LR with 20 KCl/L, 125 mL per hour. 3. May have sips of clear liquids. 4. N.p.o. after midnight. 5. Check CBC, CMP, mag, phos, lipase, and amylase in a.m. 6. We will evaluate p.r.n. or in a.m. Caridad Bone PA-C /[id number]
[2019-12-20] MEDS: Dextrose 5%-Lact Ringers w/KCl 1,000 ML IV SCH (15:23)
[2019-12-21] MEDS: metroNIDAZOLE/Normal Saline 500 MG in Premix Bag 1 BAG IV SCH ×2 (00:01→09:04)
[2019-12-21] MEDS: Dextrose 5%-Lact Ringers w/KCl 1,000 ML IV SCH ×3 (01:48→08:20)
[2019-12-21] MEDS: Ciprofloxacin in D5W 400 MG in Premix Bag 1 BAG IV SCH ×4 (01:52→03:07)
[2019-12-21] MEDS: Pantoprazole 40 MG Vial IV SCH ×2 (01:53→03:07)
[2019-12-21] MEDS ORDERED: fentaNYL 100 MCG/2 ML SDV ONE (07:26)
[2019-12-21] MEDS ORDERED: Propofol 200 MG/20 ML SDV ONE (07:26)
[2019-12-21] MEDS ORDERED: Midazolam 1 MG/ML 2 ML SDV ONE (07:26)
--- NOTE | 2019-12-21 10:23 | PCM.DCSUM1 ---
Discharge Summary - Hospital Course HPI Initial Comments: Ms. Sowmya Salcedo was admitted to [facility] on 19 December 2019 for management of acute RUQ/Epigastric abdominal pain in the setting of CT identified duodenitis. Patient, at time of admission, had elevated lipase levels suggestive of pancreatitis as well. The patient was made NPO, started on IV cipro/flagyl with good results. The patient was noted to have had bloody stools but these have tapered off and have become less pronounced over the course of her admission. her Hgb levels have climbed during the course of the admission. She is discharged today with an Hgb of 10.3. She underwent EGD on 21 December 2019 and at that time was found to have had duodenitis without other clinical feature. Biopsies are pending given her prior history of H pylori infection. Otherwise the patient remains stable at this time and is ready to D/C after advancement to regular diet. Diagnosis: Stroke: No - Discharge Data Discharge Date: 12/21/19 Discharge Disposition: Home, Self-Care 01 Condition: Good - Referral to Home Health Primary Care Physician: Sol Thompson MD - Patient Instructions Diet: Usual Diet as Tolerated Driving: July Drive Today Showering/Bathing: July Shower - Discharge Plan *PRESCRIPTION DRUG MONITORING PROGRAM REVIEWED*: No *COPY OF PRESCRIPTION DRUG MONITORING REPORT IN PATIENT LAURA: No Prescriptions/Med Rec: Ciprofloxacin HCl [Cipro] 500 mg PO BID 5 Days tablet metroNIDAZOLE [Flagyl] 500 mg PO Q8H 5 Days #15 tab Home Medications: Home Meds Omeprazole 40 mg PO ACBREAKFAST 11/18/19 [History] Zolpidem [Ambien] 5 mg PO BEDTIME PRN 11/18/19 [History] Acetaminophen [Tylenol] 650 mg PO Q4H PRN tablet 12/21/19 [Rx] Ciprofloxacin HCl [Cipro] 500 mg PO BID 5 Days tablet 12/21/19 [Rx] Ondansetron [Zofran ODT] 4 mg PO Q6H PRN tab.dis 12/21/19 [Rx] metroNIDAZOLE [Flagyl] 500 mg PO Q8H 5 Days #15 tab 12/21/19 [Rx] metroNIDAZOLE/Normal Saline [Flagyl 500 MG in NS 100 ML] 500 mg IV Q8H bag 12/21/19 [Rx] Forms: ED Department Discharge Referrals: Sol Thompson MD [Primary Care Provider] - - Discharge Summary/Plan Comment DC Time >30 min.: Yes - Patient Data Vitals - Most Recent: Last Vital Signs Temp 96.6 F L 12/21/19 08:15 Pulse 59 L 12/21/19 09:00 Resp 16 12/21/19 09:00 BP 101/53 L 12/21/19 09:00 Pulse Ox 97 12/21/19 08:15 Weight - Most Recent: 140 lb I&O - Last 24 hours: Intake & Output 12/20/19 12/21/19 12/21/19 22:59 06:59 14:59 Intake Total 1500 1460 150 Output Total 1900 2200 Balance -400 -740 150 Lab Results - Last 24 hrs: Laboratory Results - last 24 hr 12/20/19 12/21/19 12/21/19 Range/Units 15:52 04:05 04:05 WBC 6.2 (4.5-11.0) K/uL RBC 3.58 (3.30-5.50) M/uL Hgb 10.2 L (12.0-15.0) g/dL Hct 31.6 L (36.0-48.0) % MCV 88 (80-98) fL MCH 29 (27-31) pg MCHC 32 (32-36) % Plt Count 214 (150-400) K/uL Neut % (Auto) 65 (36-66) % Lymph % (Auto) 22 L (24-44) % [place] % (Auto) 10 H (2-6) % Eos % (Auto) 2 (2-4) % Baso % (Auto) 1 (0-1) % Sodium 139 L (140-148) mmol/L Potassium 3.7 (3.6-5.2) mmol/L Chloride 105 (100-108) mmol/L Carbon Dioxide 28 (21-32) mmol/L Anion Gap 9.7 (5.0-14.0) mmol/L BUN 3 L D (7-18) mg/dL Creatinine 0.8 (0.6-1.0) mg/dL Est Cr Clr Drug Dosing 70.28 mL/min Estimated GFR (MDRD) > 60 (>60) Glucose 120 H (74-106) mg/dL Calcium 8.1 L (8.5-10.1) mg/dL Phosphorus 2.0 L (2.5-4.9) mg/dL Magnesium 2.0 (1.8-2.4) mg/dL Total Bilirubin 0.3 (0.2-1.0) mg/dL AST 10 L (15-37) U/L ALT 18 (12-78) U/L Alkaline Phosphatase 49 (46-116) U/L Total Protein 5.5 L (6.4-8.2) g/dL Albumin 2.7 L (3.4-5.0) g/dL Globulin 2.8 (2.3-3.5) g/dL Albumin/Globulin Ratio 1.0 L (1.2-2.2) Amylase 53 (25-115) U/L Lipase 362 (73-393) U/L SARS-CoV-2 RNA (AMADEO) Negative (NEGATIVE) Med Orders - Current: Current Medications Acetaminophen (Tylenol) 650 mg PO Q4H PRN PRN Reason: Pain (Mild 1-3)/fever Last Admin: 12/20/19 17:26 Dose: 650 mg Documented by: Hydromorphone HCl (Dilaudid) 0.5 mg IVPUSH Q4H PRN PRN Reason: Pain Ciprofloxacin/Dextrose 400 mg/ (Premix) 200 mls @ 200 mls/hr IV Q12H [facility] Stop: 01/02/20 03:59 Last Admin: 12/21/19 03:07 Dose: Not Given Documented by: Metronidazole 500 mg/ Premix 100 mls @ 100 mls/hr IV Q8H [facility] Stop: 01/02/20 09:59 Last Admin: 12/21/19 09:04 Dose: 100 mls/hr Documented by: Potassium Cl/Dextrose/Lact Ringer's (D5 Lr With 20 Meq Kcl) 1,000 mls @ 125 mls/hr IV ASDIRECTED [facility] Last Admin: 12/21/19 08:20 Dose: 125 mls/hr Documented by: Ondansetron HCl (Zofran Odt) 4 mg PO Q6H PRN PRN Reason: Nausea able to take PO Last Admin: 12/21/19 05:45 Dose: 4 mg Documented by: Pantoprazole Sodium (Protonix Iv) 40 mg IV Q12H [facility] Last Admin: 12/21/19 03:07 Dose: Not Given Documented by: Zolpidem Tartrate (Ambien) 5 mg PO BEDTIME PRN PRN Reason: Insomnia Last Admin: 12/20/19 20:18 Dose: 5 mg Documented by: Discontinued Medications Fentanyl (Sublimaze) Confirm Administered Dose 100 mcg .ROUTE .STK-MED ONE Stop: 12/21/19 07:27 Sodium Chloride (Normal Saline) 80 mls @ 3.5 mls/sec IV ASDIRECTED [facility] Stop: 12/19/19 13:46 Last Admin: 12/19/19 13:59 Dose: 2.5 mls/sec Documented by: Sodium Chloride (Normal Saline) 1,000 mls @ 125 mls/hr IV ASDIRECTED [facility] Last Admin: 12/20/19 02:28 Dose: 1,000 mls/hr Documented by: Ciprofloxacin/Dextrose 400 mg/ (Premix) 200 mls @ 200 mls/hr IV Q12H [facility] Stop: 01/02/20 15:01 Last Admin: 12/19/19 15:30 Dose: 200 mls/hr Documented by: Dextrose/Lactated Ringer's (Dextrose 5%-Lactated Ringers) 1,000 mls @ 125 mls/hr IV ASDIRECTED [facility] Last Admin: 12/20/19 11:28 Dose: 125 mls/hr Documented by: Iopamidol (Isovue-300 (61%)) 96 ml IV . DIRECTED [facility] Stop: 12/19/19 13:46 Last Admin: 12/19/19 13:59 Dose: 96 ml Documented by: Midazolam HCl (Versed 1 Mg/Ml) Confirm Administered Dose 2 mg .ROUTE .STK-MED ONE Stop: 12/21/19 07:27 Pantoprazole Sodium (Protonix Iv) 40 mg IVPUSH ONETIME ONE Stop: 12/19/19 14:33 Last Admin: 12/19/19 15:01 Dose: 40 mg Documented by: Propofol (Diprivan 20 Ml) Confirm Administered Dose 200 mg .ROUTE .STK-MED ONE Stop: 12/21/19 07:27 Sodium Chloride (Saline Flush) 10 ml FLUSH ONETIME ONE Stop: 12/19/19 13:34 Last Admin: 12/19/19 13:59 Dose: 10 ml Documented by:
[2019-12-21] MEDS ORDERED: FLU Vacc QV2020-21(65YR UP)/PF 240 MCG/0.7 ML Syringe IM ONE (12:30)
--- NOTE | 2019-12-29 10:45 | OR ---
DATE OF PROCEDURE: 12/21/2019 SURGEON: Tani Conroy MD PREOPERATIVE DIAGNOSIS: Recent epigastric pain with CT scan showing duodenitis. POSTOPERATIVE DIAGNOSIS: Healing duodenitis. OPERATIVE PROCEDURE: Upper GI endoscopy with antral biopsies for CLOtest. ANESTHESIA: IV sedation. INDICATION FOR PROCEDURE: A 64-year-old female presenting with some ongoing upper abdominal pain. Workup included a CT scan which showed a significant duodenitis. Plan is to proceed with upper GI endoscopy with biopsies as indicated. Potential risks including bleeding and perforation were discussed, and the patient wishes to proceed. DETAILS OF PROCEDURE: The patient was taken to the operating room and placed in a left lateral decubitus position. IV sedation was administered, after which the upper GI endoscope was passed orally through the length of esophagus into the stomach with retroflexion view of the fundus, thereafter through the pyloric channel into the junction of the third and fourth portions of the of the duodenum. Findings included normal hypopharynx, larynx, upper esophageal sphincter, and esophageal body. At the EG junction, no significant hiatal hernia was present nor was there any inflammation. Of note, within the stomach, there was a small amount of retained bile. As one passed into the pyloric channel, there was some patchy redness within duodenum. 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 Biopsy was obtained from the antrum and sent for CLOtest for H pylori. Minimal bleeding from the biopsy site was seen, and the procedure was then concluded. The patient was taken to the recovery room in satisfactory condition. Plan will be to continue the present proton pump inhibitor use. Contact the patient if CLOtest is positive. Tani Conroy MD /[id number]
== END 2019-12-21 16:00 | disposition home or self-care (01) | DRG 392 ==
LOC: JP.ED 12:10 → JP.MS 14:45
PROVIDERS: ADMIT Family Medicine; ATTEND Family Medicine
PROC: 0DB78ZX Excision of Stomach, Pylorus, Via Natural or Artificial Opening Endoscopic, Diagnostic (ICD-10-PCS; principal; 2019-12-21)
DX: K29.81 Duodenitis with bleeding (principal); K57.92 Diverticulitis of intestine, part unspecified, without perforation or abscess without bleeding; R10.10 Upper abdominal pain, unspecified; K29.80 Duodenitis without bleeding; Z79.899 Other long term (current) drug therapy; H54.7 Unspecified visual loss; K21.9 Gastro-esophageal reflux disease without esophagitis; M19.90 Unspecified osteoarthritis, unspecified site; G89.29 Other chronic pain; M54.9 Dorsalgia, unspecified; Z85.3 Personal history of malignant neoplasm of breast; Z85.828 Personal history of other malignant neoplasm of skin; Z90.89 Acquired absence of other organs; Z20.828 Contact with and (suspected) exposure to other viral communicable diseases; Z90.11 Acquired absence of right breast and nipple
CPT/HCPCS: 36415; 74177 ×2; 80053; 83605; 83690; 85025; 99285; J7030; Q9967; 82150; 83735; 84100; 85018; 87081; 99284; A9270-GY; C9113; J0744; J2250; J2704; J3010; J3480; J3490; J7121; U0002

== ENCOUNTER 2019-12-30 14:10 | Emergency (ER) | payer MEDICARE ==
[2019-12-30] MEDS ORDERED: Alum Hydrox/Mag Hydrox/Simeth 15 ML, Lidocaine 2% 15 ML PO ONE ×2 (15:37)
--- NOTE | 2019-12-30 15:43 | EDM.PDOC ---
ED HPI GENERAL MEDICAL PROBLEM - General Chief Complaint: Gastrointestinal Problem Stated Complaint: GASTRIC ATTACK Time Seen by Provider: 12/30/19 14:25 Source of Information: Reports: Patient, Family History Limitations: Reports: No Limitations - History of Present Illness INITIAL COMMENTS - FREE TEXT/NARRATIVE: 64-year-old female who is been having recurring abdominal pain, bloody diarrhea, had an EGD 3 weeks ago that showed duodenitis, and she responded to antibiotics and proton pump inhibitors. She was doing better but has had 2 more occurrences of pain, one was evaluated last week and it resolved without specific treatment, she has had 3 more episodes of bloody diarrhea today and epigastric discomfort. It still is bothersome at this time but is much better. No fevers or chills, no shortness of breath. Onset: Other (Symptoms wax and wane, tend to last 1 to 2 days when they occur) Associated Symptoms: Reports: Chest Pain, Malaise. Denies: Confusion, Cough, Nausea/Vomiting, Shortness of Breath, Weakness - Related Data Allergies Allergy/AdvReac Type Severity Reaction Status Date / Time No Known Allergies Allergy Verified 12/30/19 14:29 Home Meds: Home Meds Omeprazole 40 mg PO ACBREAKFAST 11/18/19 [History] Zolpidem [Ambien] 5 mg PO BEDTIME PRN 11/18/19 [History] Acetaminophen [Tylenol] 650 mg PO Q4H PRN tablet 12/21/19 [Rx] Ondansetron [Zofran ODT] 4 mg PO Q6H PRN tab.dis 12/21/19 [Rx] Bismuth Subsalicylate [Pepto Bismol] 2 tab PO ASDIRECTED 12/30/19 [History] Denosumab [Prolia] 60 mg INJECT ASDIRECTED 12/30/19 [History] L.acidoph,Paracasei, B.lactis [Probiotic] 1 tab PO DAILY 12/30/19 [History] Past Medical History HEENT History: Reports: Impaired Vision Cardiovascular History: Reports: Other (See Below) Other Cardiovascular History: history of mitral valve prolapse; diagnosed years ago; no longer takes abx prior to procedures Gastrointestinal History: Reports: GERD, Helicobacter Pylori Genitourinary History: Reports: None LATH TIER History: Reports: Musculoskeletal History: Reports: Arthritis, Back Pain, Chronic Oncologic (Cancer) History: Reports: Basal Cell Carcinoma, Breast Dermatologic History: Reports: None - Infectious Disease History Infectious Disease History: Reports: Chicken Pox, Helicobacter Pylori, Influenza, Measles - Past Surgical History HEENT Surgical History: Reports: Oral Surgery, Tonsillectomy Cardiovascular Surgical History: Reports: None GI Surgical History: Reports: Colonoscopy Other GI Surgeries/Procedures: Gallbladder polup no stones last week. Female Surgical History: Reports: Breast Biopsy, Mastectomy Musculoskeletal Surgical History: Reports: None Oncologic Surgical History: Reports: Mastectomy Dermatological Surgical History: Reports: Skin Biopsy Social & Family History - Family History Family Medical History: Noncontributory - Tobacco Use Tobacco Use Status *Q: Never Tobacco User - Caffeine Use Caffeine Use: Reports: Tea ED ROS GENERAL - Review of Systems Review Of Systems: See Below Constitutional: Reports: Malaise. Denies: Fever, Chills HEENT: Reports: No Symptoms Respiratory: Denies: Shortness of Breath Cardiovascular: Reports: Chest Pain GI/Abdominal: Reports: Diarrhea, Hematochezia. Denies: Abdominal Pain, He matemesis, Vomiting Musculoskeletal: Reports: Other (Some radiation of pain to the right back) Skin: Denies: Rash Neurological: Denies: Headache Psychiatric: Reports: No Symptoms ED EXAM, GI/ABD - Physical Exam Exam: See Below Exam Limited By: No Limitations General Appearance: Alert, No Apparent Distress Eyes: Bilateral: Normal Appearance Head: Atraumatic Neck: Non-Tender Respiratory/Chest: No Respiratory Distress, Lungs Clear Cardiovascular: Regular Rate, Rhythm GI/Abdominal Exam: Tender (Mild tenderness to palpation over the epigastric area, no guarding or rebound) Neurological: Alert, Oriented Psychiatric: Normal Affect, Normal Mood Skin Exam: Warm, Dry, Pallor (Mild pallor is possible) Course - Vital Signs Last Recorded V/S: Last Vital Signs Temp 97.9 F 12/30/19 14:30 Pulse 95 12/30/19 14:30 Resp 16 12/30/19 14:30 BP 146/69 H 12/30/19 14:30 Pulse Ox 99 12/30/19 14:30 - Orders/Labs/Meds Labs: Laboratory Tests 12/30/19 Range/Units 14:56 WBC 6.3 (4.5-11.0) K/uL RBC 2.96 L (3.30-5.50) M/uL Hgb 8.4 L (12.0-15.0) g/dL Hct 27.1 L (36.0-48.0) % MCV 92 (80-98) fL MCH 28 (27-31) pg MCHC 31 L (32-36) % Plt Count 240 (150-400) K/uL Neut % (Auto) 78 H (36-66) % Lymph % (Auto) 16 L (24-44) % [place] % (Auto) 6 (2-6) % Eos % (Auto) 0 L (2-4) % Baso % (Auto) 1 (0-1) % Meds: Medications Discontinued Medications Generic Name Dose Route Start Last Admin Trade Name Freq PRN Reason Stop Dose Admin Al Hydroxide/Mg Hydroxide 15 0 ml 12/30/19 15:37 12/30/19 15:45 ml/ Lidocaine HCl 15 ml PO 12/30/19 15:38 30 ml ONETIME ONE Administration - Re-Assessments/Exams Free Text/Narrative Re-Assessment/Exam: 12/30/19 15:43 Reviewed her recent medical work-up, her EGD showed duodenitis but no ulcer or diverticula. CLOtest was negative, a CBC was drawn and her hemoglobin returned 8.4. This is concerning as it was 10.2 2 weeks ago. Patient was given a GI cocktail. 12/30/19 15:58 GI cocktail resolved her symptoms, and the patient remembered she had a gastroenterology consult tomorrow. Copies of her EGD report and labs were given to the patient and she will discuss this with her care tech and primary care provider tomorrow. She can return if bleeding becomes heavier. Departure - Departure Time of Disposition: 16:17 Disposition: Home, Self-Care 01 Clinical Impression: Hematochezia, Duodenitis - Discharge Information Instructions: Gastrointestinal Bleeding Referrals: Sol Thompson MD [Primary Care Provider] - Forms: ED Department Discharge Care Plan Goals: Continue full dose omeprazole twice daily, and recheck tomorrow with your primary provider and care tech as planned. Return sooner if worsening such as increased bleeding, weakness or uncontrolled pain. Use a small amount of numbing medicine with liquid antiacid as prescribed for any recurrent pain. Sepsis Event Note (ED) - Evaluation Sepsis Screening Result: No Definite Risk - Focused Exam Vital Signs: Vital Signs Temp Pulse Resp BP Pulse Ox 12/30/19 14:30 97.9 F 95 16 146/69 H 99 12/30/19 14:21 97.9 F 95 16 146/69 H 99
== END 2019-12-30 16:17 | disposition home or self-care (01) ==
LOC: JP.ED 14:10
DX: K92.1 Melena (principal); K29.80 Duodenitis without bleeding; K21.9 Gastro-esophageal reflux disease without esophagitis; Z79.899 Other long term (current) drug therapy
CPT/HCPCS: 36415; 85025; 99284; A9270